=== PATIENT | female | born 1980 | race Caucasian/White ===

== ENCOUNTER → 2020-12-16 | Day surgery (SDC) | payer OTHER ==
[~2020-12-16] MED LIST: BACTRIM DS TAB1 EACH PO; HYDROCODON-ACE1 EAC4 PO; IBU600 MG PO
[2020-12-16 08:33] LABS: HEMOGLOBIN 16.3 gm/dl (12.3-15.3); RED BLOOD COUNT 5.07 M/UL (4.00-5.10); WHITE BLOOD COUNT 9.7 K/UL (4.5-11.0)
== END | disposition home or self-care (01) ==
LOC: OR 07:46
PROVIDERS: Obstetrics & Gynecology
DX: N75.1 Abscess of Bartholin's gland (principal); Z88.5 Allergy status to narcotic agent; Z86.69 Personal history of other diseases of the nervous system and sense organs; Z87.09 Personal history of other diseases of the respiratory system; Z98.51 Tubal ligation status; Z20.822 Contact with and (suspected) exposure to COVID-19; I49.9 Cardiac arrhythmia, unspecified
CPT/HCPCS: 36415; 84703; 85025; 87070; 87205; 93005; J1100; J1885; J2001; J2250; J2405; J2704; J2795; J3010; J7120; U0002